=== PATIENT | male | born 1975 | race Caucasian/White ===

== ENCOUNTER 2024-04-17 11:14 | Emergency (ER) | payer BC, SELFPAY ==
[2024-04-17 11:16] VITALS: BP 156/102
[2024-04-17 11:53] VITALS: BMI 27.8
[2024-04-17 11:55] VITALS: BP 150/101
[2024-04-17 12:00] LABS: % Basophils 0.1 % (0-2); % Eosinophils 0.2 % (0-6); % Immature Granulocytes 0.4 % (0-0.5); % Lymphocytes 19.1 % (20.5-51.1); % Monocytes 9.3 % (1.7-9.3); % Neutrophils 70.9 % (42.2-75.2); Absolute Lymphocytes 1.6 10^3/uL (1.2-3.4); Absolute Monocytes 0.8 10^3/uL (0.1-0.6); Hematocrit 39.7 % (39.0-52.0); Hemoglobin 14.6 g/dL (13.0-18.0); Mean Corp Hgb Conc. 36.8 g/dL (33.0-37.0); Mean Corpuscular Volume 89.6 fL (80.0-94.0); Mean Platelet Volume 9.1 fL (7.4-10.4); Nucleated Red Blood Cells % 0 % (-); Platelet Count 177 10^3/uL (130-400); Red Blood Cell Count 4.43 10^6/uL (4.70-6.10); White Blood Cell Count 8.5 10^3/uL (4.8-10.8)
--- NOTE | 2024-04-17 12:07 | ED.GENMED ---
History of Present Illness
General
Chief Complaint: Breathing Problem
Source: patient and spouse
Exam Limitations: none
Time Seen by Provider: 04/17/24 11:52
Nursing documentation reviewed up to this point in time: agreed with
History of Present Illness
History of Present Illness:
48-year-old male presents complaining of left-sided rib for the past 2 to 3 days. It is worse when he takes a deep breath. About an hour ago he coughed up blood. His states it was bright red blood. He takes aspirin 81 mg, and has a history
of cardiac stents.
Past History
Past History
ED Past Medical History: CAD, HTN and Hypercholesterolemia
ED Past Surgical History: Cardiac and Orthopedic
Social History
Tobacco: Non-smoker
Alcohol: Occasional
Personal:
Living: with family
Employment: Employed
Family History
Family History: Other (Dad had an ME at age 35)
Review of Systems
Review of Systems
Allergies reviewed?: Yes
Constitutional: Reports no symptoms
EENT: Reports no symptoms
Respiratory: Reports hemoptysis and trouble breathing
Cardiac: Reports chest pain
ABD/GI: Reports no symptoms
: Reports no symptoms
Musculoskeletal: Reports no symptoms
Skin: Reports no symptoms
Neurological: Reports no symptoms
Endocrine: Reports no symptoms
Hematologic/Lymphatic: Reports no symptoms
Psychiatric: Reports no symptoms
Phy Exam
Physical Exam
Physical Exam:
Physical Exam
General: no apparent distress, not acutely ill
Neck: supple. no meningeal signs. normal posterior pharynx
Heart: s1/s2 regular rate and rhythm, no murmur. equal radial
pulses.
HEENT: Pupils equal round reactive to light, EOMI
Lungs: no acute respiratory distress. clear bilaterally, no chest wall tenderness
Abdomen: normal bowel sounds. not tender. no CVAT
Neuro: alert and oriented. no focal neurological deficits cranial nerves II through XII intact
Skin: no rash
Psychiatric: well kept. interactive and cooperative
Extremities: no edema. no calf tenderness. negative homans. good distal pulses
Scores
Heart Failure Risk
Heart Failure Risk Score: Not Applicable
Course
Orders/Labs/Results
Orders:
Orders
04/17/24 11:19
ECG [Electrocardiogram (*1)] Urgent
Reason for Study: Shortness of Breath
EKG- Treatment ONCE
04/17/24 11:50
Complete Blood Count/With Diff Urgent
Comprehensive Metabolic Panel Urgent
04/17/24 12:06
CT Chest Pe Study Urgent
Comment:
Reason For Exam: left sided chest pain, hemoptysis
IV Insert/Care/Rem.- Treatment PRN
Abnormal Lab Results
04/17/24
11:50
RBC 4.43 L 10^6/uL
(4.70-6.10)
MCH 33.0 H pg
(27.0-31.0)
Absolute Monos (auto) 0.8 H 10^3/uL
(0.1-0.6)
Lymphocytes % 19.1 L %
(20.5-51.1)
Glucose 114 H mg/dl
(70-99)
Total Bilirubin 2.6 H mg/dl
(0.2-1.3)
04/17/24 11:50
04/17/24 11:50
Vital Signs
Initial and Last Documented VS:
Initial Vital Signs
Temp Pulse Resp BP Pulse Ox
98.0 F 105 18 156/102 97
04/17/24 11:16 04/17/24 11:16 04/17/24 11:16 04/17/24 11:16 04/17/24 11:16
Last Documented Vital Signs
Temp Pulse Resp BP Pulse Ox
98.0 F 79 16 150/101 96
04/17/24 11:16 04/17/24 11:55 04/17/24 11:55 04/17/24 11:55 04/17/24 11:55
MDM/Problems Addressed
Differential Diagnosis Includes:
Pulmonary embolism, pulmonary mass
MDM/Problems Addressed:
48-year-old male with hemoptysis, unclear etiology. Possibly due to bronchitis. Vital signs stable. CT chest no acute findings
*Radiology
Radiology exam reviewed: radiology read reviewed (CT chest no acute findings)
*Pulse Oximetry
Patient hypoxic: no
*EKG
Interpreted by ED Provider?: Yes
EKG Intrepretation Date: 04/17/24
EKG Intrepretation Time: 11:23
Interpretation: normal
Comparison EKG: no changes
Heart Rate: 85
Rate: normal
Rhythm: sinus
[place]: normal axis
Interval: normal interval
QRS Pattern: normal QRS
Ischemia: no ischemia
*Ultrasound Supervisor Interpretation
Rate: normal
Interpretation: normal
Heart Rate: 84
Rhythm: sinus
*Critical Care Note
Total Time (30-74mins, 75-104mins- exclusive of procedures): Not Applicable
Patient Management
Social determinants of health affecting care: Living situation and Strong social support
Escalation/DeEscalation of care consider admission/obs:
Admit not indicated
ED Attending Note
-
Portions of this chart may have been created with voice recognition software.� Occasional wrong word or��sound alike� substitutions may have occurred due to the inherent limitations of voice recognition software.
Discharge Plan
Departure
Patient Disposition: Home (Routine Discharge)
Date of Disposition: 04/17/24
Time of Disposition: 14:31
Patient with high blood pressure during this ER visit?: Yes
Condition: Good
Discharge Problem:
Cough with hemoptysis
Instructions: Coughing up blood
Prescriptions:
No Action
valsartan 80 mg Tablet
80 mg PO HS
aspirin 81 mg Tablet,Delayed Release (Dr/Ec)
81 mg PO HS
acetaminophen [Tylenol Extra Strength] 500 mg Tablet
1,000 mg PO DAILYPRN PRN (Reason: mild pain)
rosuvastatin 40 mg Tablet
40 mg PO HS
eszopiclone 3 mg Tablet
3 mg PO HS
Referrals:
Alejandro Galvez DO [Family Provider] - Call in 1-3 days for appt
Derick Correia MD [Active] - Call in 1-3 days for appt
Interventions
Interventions:
*Risk Screen - Suicide Last Done: 04/17/24 11:16
*General Assessment Last Done: 04/17/24 11:16
*Neglect/Abuse Screening Last Done: 04/17/24 11:16
ED- Fall Risk Assessment Last Done: 04/17/24 11:55
*ED COVID-19 Vaccine History Last Done: 04/17/24 11:53
*Nursing Disposition Last Done: 04/17/24 14:45
ED- Cardiac Assessment Last Done: 04/17/24 11:53
ED- Pulmonary Assessment Last Done: 04/17/24 11:55
Discharge Date and Time
Discharge Date/Time: 04/17/24 14:46
Print Language: BAHAMIAN
[2024-04-17 12:24] LABS: ALT (SGPT) 32 U/L (0-50); AST (SGOT) 24 U/L (17-59); Albumin 4.7 g/dl (3.5-5.0); Alkaline Phosphatase 98 U/L (38-126); Blood Urea Nitrogen 12 mg/dl (9-20); Calcium 9.7 mg/dl (8.4-10.2); Carbon Dioxide 27 mmol/L (22-30); Chloride 106 mmol/L (98-107); Estimated Creatinine Clearance > 125 ml/min; Glucose 114 mg/dl (70-99); Potassium 3.9 mmol/L (3.5-5.1); Sodium 142 mmol/L (135-145); Total Bilirubin 2.6 mg/dl (0.2-1.3); Total Protein 7.4 g/dl (6.3-8.2); eGFR > 60.00
== END 2024-04-17 14:46 | disposition home or self-care (01) ==
LOC: EMR 11:14
PROVIDERS: EMERGENCY PHYSICIAN Emergency Medicine; FAMILY PHYSICIAN Family Medicine
DX: R05.9 Cough, unspecified (principal); R04.2 Hemoptysis; I10 Essential (primary) hypertension
CPT/HCPCS: 99285; 71275; 80053; 85025; 93005; Q9967

== ENCOUNTER 2024-10-10 09:19 | Emergency (ER) | payer BC, SELFPAY ==
[2024-10-10 09:31] VITALS: BP 155/97
--- NOTE | 2024-10-10 10:16 | ED.GENMED ---
History of Present Illness
General
Chief Complaint: Male Genito-Urinary Symptoms
Time Seen by Provider: 10/10/24 09:58
History of Present Illness
History of Present Illness:
48-year-old male presents to the emergency department for evaluation of right sided testicular pain and swelling gradually worsening over the past 24 hours. He is approximately 2 months status post a vasectomy. Denies any recent trauma otherwise
to the penis or scrotum. Denies concern for STI, no penile discharge or dysuria. No fevers or chills.
Past History
Past History
ED Past Medical History: CAD, HTN and Hypercholesterolemia
ED Past Surgical History: Cardiac and Orthopedic
Social History
Tobacco: Non-smoker
Alcohol: Occasional
Personal:
Living: with family
Employment: Employed
Family History
Family History: Other (Dad had an CO at age 35)
Review of Systems
Review of Systems
Allergies reviewed?: Yes
All Other Systems: ROS reviewed and negative except as documented in HPI and ROS
Phy Exam
Physical Exam
Physical Exam:
GEN: Well appearing, NAD, WDWN
HEENT: Oral mucosa moist, no scleral icterus
Cardiac: Regular rate
Lung: No respiratory distress, no tachypnea
: Moderate erythema and swelling to the right hemiscrotum with significant tenderness to palpation, cremasteric reflexes present bilaterally, no palpable inguinal adenopathy
MSK: No gross deformity or injuries
Skin: Good color, no pallor or jaundice, no rashes
Neuro: AO x3, moves all extremities freely
Psych: Calm, cooperative
Course
Orders/Labs/Results
Orders:
Orders
10/10/24 09:47
US Scrotum Urgent
Comment:
Reason For Exam: R testicular pain
10/10/24 10:49
Urinalysis Reflex To Culture Urgent
Date Specimen was Collected: 10/10/24
Time Specimen was Collected: 10:07
Abnormal Lab Results
10/10/24
10:49
Urine Bilirubin 1+ A
(Negative)
Vital Signs
Initial and Last Documented VS:
Initial Vital Signs
Temp Pulse Resp BP Pulse Ox
97.9 F 98 16 155/97 97
10/10/24 09:31 10/10/24 09:31 10/10/24 09:31 10/10/24 09:31 10/10/24 09:31
Last Documented Vital Signs
Temp Pulse Resp BP Pulse Ox
97.9 F 98 17 155/97 97
10/10/24 09:31 10/10/24 09:31 10/10/24 11:03 10/10/24 09:31 10/10/24 09:31
MDM/Problems Addressed
MDM/Problems Addressed:
Will start empiric abx, no concern for STI
*Critical Care Note
Total Time (30-74mins, 75-104mins- exclusive of procedures): Not Applicable
ED Attending Note
-
Portions of this chart may have been created with voice recognition software.� Occasional wrong word or��sound alike� substitutions may have occurred due to the inherent limitations of voice recognition software.
Discharge Plan
Departure
Patient Disposition: Home (Routine Discharge)
Date of Disposition: 10/10/24
Time of Disposition: 11:59
Patient with high blood pressure during this ER visit?: No
Discharge Problem:
Acute epididymitis
Instructions: Epididymitis and Orchitis
Prescriptions:
New
sulfamethoxazole-trimethoprim [Bactrim DS] 800-160 mg tablet
1 tab PO Q12H 10 Days Qty: 20 0RF
No Action
valsartan 80 mg Tablet
80 mg PO HS
aspirin 81 mg Tablet,Delayed Release (Dr/Ec)
81 mg PO HS
acetaminophen [Tylenol Extra Strength] 500 mg Tablet
1,000 mg PO DAILYPRN PRN (Reason: mild pain)
rosuvastatin 40 mg Tablet
40 mg PO HS
eszopiclone 3 mg Tablet
3 mg PO HS
Referrals:
Alejandro Galvez DO [Family Provider] -
Interventions
Interventions:
*Risk Screen - Suicide Last Done: 10/10/24 09:31
*Neglect/Abuse Screening Last Done: 10/10/24 09:31
*Nursing Disposition Last Done: 10/10/24 12:03
ED-Male Genitourinary Assessment Last Done: 10/10/24 10:53
Discharge Date and Time
Discharge Date/Time: 10/10/24 12:15
Print Language: [place]
[2024-10-10 11:06] LABS: Urine Albumin Trace (Neg - Trace); Urine Bilirubin 1+ (Negative); Urine Character Clear (Clear); Urine Color Yellow; Urine Glucose Negative (Negative); Urine Ketone Negative (Negative); Urine Leukocyte Negative (Negative); Urine Nitrite Negative (Negative); Urine Occult Blood Negative (Negative); Urine Specific Gravity 1.015 (<1.030); Urine Urobilinogen 1+ (Neg - 1+); Urine pH 6.5 (5.0-9.0)
== END 2024-10-10 12:15 | disposition home or self-care (01) ==
LOC: EMR 09:19
PROVIDERS: Physician Assistant; EMERGENCY PHYSICIAN Student in an Organized Health Care Education/Training Program; FAMILY PHYSICIAN Family Medicine
DX: N45.1 Epididymitis (principal); I25.10 Atherosclerotic heart disease of native coronary artery without angina pectoris; I10 Essential (primary) hypertension; E78.00 Pure hypercholesterolemia, unspecified
CPT/HCPCS: 99284; 76870; 81003; 93976